=== PATIENT | female | born 1955 ===

== ENCOUNTER 2017-07-30 07:50 | Day surgery (SDC) | payer BC ==
[~2017-07-30] VITALS: Ht 157.5 cm; Wt 90.7 kg
[~2017-07-30 07:50] MED LIST: JARDIANCE25 MG PO; SIMVASTATIN40 MG PO; VENLAFAXINE HCL75 MG PO
== END 2017-07-30 10:02 | disposition home or self-care (01) ==
LOC: OPS 07:50 → DS 07:50 → OPS 10:02
PROC: 08RK3JZ Replacement of Left Lens with Synthetic Substitute, Percutaneous Approach (ICD-10-PCS; principal; 2017-07-30)
DX: H25.812 Combined forms of age-related cataract, left eye (principal); E78.00 Pure hypercholesterolemia, unspecified; E11.9 Type 2 diabetes mellitus without complications; F32.9 Major depressive disorder, single episode, unspecified; G47.30 Sleep apnea, unspecified; Z90.89 Acquired absence of other organs; Z98.890 Other specified postprocedural states
CPT/HCPCS: 00140; J2250